=== PATIENT | female | born 1955 | race Two or more races ===

== ENCOUNTER 2018-04-05 13:54 | Emergency (ER) | payer OTHER ==
[~2018-04-05] VITALS: Ht 165.1 cm; Wt 108.9 kg
[2018-04-05 13:57] VITALS: BP 124/82
[2018-04-05] MEDS ORDERED: KETOROLAC TROMETH 60MG/2ML VIAL IM ONE (14:15)
[2018-04-05] MEDS ORDERED: PROMETHAZINE HCL 25 MG/ML 1ML IM ONE ×2 (15:30→15:45)
[2018-04-05] MEDS ORDERED: MEPERIDINE HCL (50 MG/ML) 1 ML VIAL IM ONE ×2 (15:30→15:45)
[2018-04-05] MEDS ORDERED: MEPERIDINE HCL (50 MG/ML) 1 ML VIAL ONE (15:44)
[2018-04-05] MEDS ORDERED: PROMETHAZINE HCL 25 MG/ML 1ML ONE (15:44)
== END 2018-04-05 16:19 | disposition home or self-care (01) ==
LOC: ER 13:54
DX: G89.29 Other chronic pain (principal); M54.5 Low back pain; M54.16 Radiculopathy, lumbar region; M51.36 Other intervertebral disc degeneration, lumbar region; J45.909 Unspecified asthma, uncomplicated
CPT/HCPCS: 72100; 96372; 99284; J1885; J2175; J2550

== ENCOUNTER 2018-06-08 17:57 | Emergency (ER) | payer MEDICAID ==
[~2018-06-08] VITALS: Ht 165.1 cm; Wt 108.9 kg
[2018-06-08 19:23] LABS: Basophils # (auto) 0.1 uL; Basophils % (auto) 0.8 % (0.0-2.0); Eosinophils # (auto) 0 uL; Eosinophils % (auto) 0.6 % (0.0-7.0); Hematocrit 39.6 % (36.0-46.0); Hemoglobin 13.1 g/dL (12.2-16.2); Lymphocytes # (auto) 2.4 uL; Lymphocytes % (auto) 33.9 % (10.0-50.0); Mean Corpuscular Hemoglobin 30.2 pg (28.0-32.0); Mean Corpuscular Hgb Conc. 33.2 g/dL (32.0-36.0); Monocytes # (auto) 0.5 uL; Monocytes % (auto) 7.7 % (0.0-12.0); Neutrophils # (auto) 4.1 uL; Nucleated Red Blood Cells % 0.2 %; Platelet Count (auto) 225 10^3/uL (140-450); Red Blood Cells 4.35 10^6/uL (4.0-5.20); Red Cell Distribution Width 15.2 % (11.8-14.3); White Blood Cell 7.1 10^3/uL (4.4-10.8)
[2018-06-08 19:40] LABS: Alanine Aminotransferase 29 U/L (13-56); Albumin 3.5 g/dL (3.4-5.0); Anion Gap 8 (5-15); Aspartate Aminotransferase 20 U/L (15-37); Blood Urea Nitrogen 14 mg/dL (7-18); Calcium 8.4 mg/dL (8.5-10.1); Carbon Dioxide 26 mmol/L (21-32); Chloride 109 mmol/L (98-107); GFR African American 128 mL/min; GFR Non-African American 106 mL/min; Glucose 87 mg/dL (74-106); Potassium 4.1 mmol/L (3.5-5.1); Sodium 143 mmol/L (136-145)
[2018-06-08 19:44] LABS: Alkaline Phosphatase 126 U/L (45-117); Bilirubin, Total 0.3 mg/dL (0.2-1.0)
[2018-06-08 20:02] LABS: Urine Bacteria FEW /hpf (None Seen); Urine Blood Negative /uL (Negative); Urine Specific Gravity 1.007 (1.001-1.035); Urine WBC <1 /hpf (0 - 5)
[2018-06-08 23:00] VITALS: BP 124/85
[2018-06-08] MEDS: HYDROcodone-ACET 10/325MG TAB PO ONE (23:10)
[2018-06-09] MEDS ORDERED: KETOROLAC TROMETH 30 MG/ML 1ML VIAL IV ONE (00:15)
== END 2018-06-09 03:19 | disposition left against medical advice (07) ==
LOC: ER 17:57
DX: M54.9 Dorsalgia, unspecified (principal); G89.29 Other chronic pain; R07.9 Chest pain, unspecified; Z53.21 Procedure and treatment not carried out due to patient leaving prior to being seen by health care provider
CPT/HCPCS: 36415; 72100; 72128; 72131; 80053; 81001; 83880; 84484; 85025; 93005; J1885

== ENCOUNTER 2022-10-26 14:52 | Inpatient (IN) | payer OTHER, MEDICAID ==
[~2022-10-26] VITALS: Ht 165.1 cm; Wt 119.2 kg
[2022-10-26] MEDS ORDERED: PANTOPRAZOLE 40 MG/10 ML VIAL INJ IV ONE ×2 (15:45→19:00)
[2022-10-26] MEDS ORDERED: MORPHINE SULFATE 4 MG/ML SYR/VIAL IV ONE (15:45)
[2022-10-26] MEDS ORDERED: ONDANSETRON HCL 4 MG/2 ML VIAL IV ONE (15:45)
[2022-10-26] MEDS ORDERED: SODIUM CHLORIDE 0.9% 500 ML IVB ONE (15:45)
[2022-10-26 16:37] LABS: Basophils # (auto) 0.2 10 ^3/uL (0-0.2); Basophils % (auto) 1.1 % (0.0-2.0); Eosinophils # (auto) 0 10 ^3/uL (0-0.8); Eosinophils % (auto) 0.1 % (0.0-7.0); Hematocrit 48.5 % (36.0-46.0); Hemoglobin 16.2 g/dL (12.2-16.2); Lymphocytes # (auto) 1.4 10 ^3/uL (0.4-5.4); Mean Corpuscular Hemoglobin 29.9 pg (28.0-32.0); Mean Corpuscular Hgb Conc. 33.4 g/dL (32.0-36.0); Mean Corpuscular Volume 89.6 fL (80.0-100.0); Monocytes # (auto) 0.6 10 ^3/uL (0-1.3); Monocytes % (auto) 4.1 % (0.0-12.0); Neutrophils # (auto) 12.2 10 ^3/uL (1.6-8.6); Neutrophils % (auto) 84.7 % (37.0-80.0); Nucleated Red Blood Cells % 0.1 %; Red Blood Cells 5.41 10^6/uL (4.0-5.20); Red Cell Distribution Width 14.1 % (11.8-14.3); White Blood Cell 14.4 10^3/uL (4.4-10.8)
[2022-10-26] MEDS ORDERED: PIPERACILLIN-TAZOB 3.375GM 100 ML IV ONE (17:45)
[2022-10-26 18:25] LABS: Potassium 3.8 mmol/L (3.5-5.1); Sodium 138 mmol/L (136-145)
[2022-10-26 18:26] LABS: Alanine Aminotransferase 28 U/L (13-56); Albumin 3.9 g/dL (3.4-5.0); Alkaline Phosphatase 129 U/L (45-117); Anion Gap 7 (5-15); Aspartate Aminotransferase 26 U/L (15-37); Bilirubin, Total 0.6 mg/dL (0.2-1.0); Blood Urea Nitrogen 13 mg/dL (7-18); Calcium 9.2 mg/dL (8.5-10.1); Carbon Dioxide 22 mmol/L (21-32); Chloride 109 mmol/L (98-107); GFR African American 117 mL/min; GFR Non-African American 97 mL/min; Glucose 144 mg/dL (74-106); Lipase 79 U/L (73-393); Total Protein 7.5 g/dL (6.4-8.2)
[2022-10-26 18:37] LABS: INR 0.97 (0.9-1.15); Partial Thromboplastin Time 24.7 sec (24.6-33.4)
[2022-10-26] MEDS: ONDANSETRON HCL 4 MG/2 ML VIAL IV PRN (19:32)
[2022-10-26 20:07] LABS: INR 0.97 (0.9-1.15)
[2022-10-26 20:10] LABS: Cholesterol 212 mg/dL (< 200); Triglycerides 102 mg/dL (< 150)
[2022-10-26 20:13] LABS: HDL Cholesterol 63 mg/dL (40-59); LDL Cholesterol 138 mg/dL (< 100)
[2022-10-26] MEDS: HYDROmorphone HCL 2 MG/ML VL/or syr IV PRN (21:00)
[2022-10-26] MEDS: metroNIDAZOLE 500MG/100ML 100 ML IV SCH (22:21)
[2022-10-26] MEDS: LACTATED RINGER'S 1,000 ML IV SCH (22:22)
[2022-10-26 22:29] LABS: Urine Amorphous Crystal FEW /hpf (None Seen); Urine Bacteria FEW /hpf (None Seen); Urine Blood Negative /uL (Negative); Urine Budding Yeast FEW /hpf (None Seen); Urine Specific Gravity 1.024 (1.001-1.035); Urine WBC <1 /hpf (0 - 5)
[2022-10-26 22:54] LABS: Alcohol, Urine < 3.0 mg/dL (0-10); Amphetamine Screen, Urine NEGATIVE (NEGATIVE); Barbiturate Scree,Urine NEGATIVE (NEGATIVE); Benzodiazephine Screen, Urine NEGATIVE (NEGATIVE); Cannabinoid Screen, Urine NEGATIVE (NEGATIVE); Cocaine Screen, Urine NEGATIVE (NEGATIVE); Opiate Scree,Urine POSITIVE (NEGATIVE); Phencyclidine Screen, Urine NEGATIVE (NEGATIVE)
[2022-10-27] MEDS: HYDROmorphone HCL 2 MG/ML VL/or syr IV PRN ×4 (01:43→23:16)
[2022-10-27] MEDS: metroNIDAZOLE 500MG/100ML 100 ML IV SCH ×3 (05:05→21:58)
[2022-10-27 05:25] LABS: Basophils # (auto) 0 10 ^3/uL (0-0.2); Basophils % (auto) 0.3 % (0.0-2.0); Eosinophils # (auto) 0 10 ^3/uL (0-0.8); Eosinophils % (auto) 0.3 % (0.0-7.0); Hematocrit 40.3 % (36.0-46.0); Hemoglobin 13.9 g/dL (12.2-16.2); Lymphocytes # (auto) 1.8 10 ^3/uL (0.4-5.4); Lymphocytes % (auto) 18.7 % (10.0-50.0); Mean Corpuscular Hgb Conc. 34.6 g/dL (32.0-36.0); Mean Corpuscular Volume 89.5 fL (80.0-100.0); Monocytes % (auto) 10.2 % (0.0-12.0); Neutrophils % (auto) 70.5 % (37.0-80.0); Nucleated Red Blood Cells % 0.1 %; Red Cell Distribution Width 14.1 % (11.8-14.3); White Blood Cell 9.9 10^3/uL (4.4-10.8)
[2022-10-27 05:41] LABS: Albumin 3.4 g/dL (3.4-5.0); Calcium 8.3 mg/dL (8.5-10.1); Potassium 3.8 mmol/L (3.5-5.1); Total Protein 6.5 g/dL (6.4-8.2)
[2022-10-27 05:43] LABS: Bilirubin, Total 0.6 mg/dL (0.2-1.0)
[2022-10-27] MEDS: ONDANSETRON HCL 4 MG/2 ML VIAL IV PRN ×2 (05:45→10:53)
[2022-10-27] MEDS ORDERED: PANTOPRAZOLE 40 MG/10 ML VIAL INJ IV SCH (10:00)
[2022-10-27] MEDS: cefTRIAXone 1GM/50ML D5W 50 ML IV SCH (10:53)
[2022-10-27] MEDS: LACTATED RINGER'S 1,000 ML IV SCH ×2 (10:54→15:00)
[2022-10-27 13:00] VITALS: BP 118/74
[2022-10-27] MEDS ORDERED: GASTROGRAFIN 120 ML SOL ONE (13:42)
[2022-10-27 17:00] VITALS: BP 114/83
[2022-10-27 22:00] VITALS: BP 127/75
[2022-10-28] MEDS: LACTATED RINGER'S 1,000 ML IV SCH ×2 (01:00→12:54)
[2022-10-28 05:00] VITALS: BP 104/59
[2022-10-28] MEDS: metroNIDAZOLE 500MG/100ML 100 ML IV SCH ×3 (05:35→23:15)
[2022-10-28] MEDS: HYDROmorphone HCL 2 MG/ML VL/or syr IV PRN ×3 (05:55→23:15)
[2022-10-28 06:24] LABS: Basophils # (auto) 0 10 ^3/uL (0-0.2); Basophils % (auto) 0.6 % (0.0-2.0); Eosinophils # (auto) 0.1 10 ^3/uL (0-0.8); Hematocrit 38.3 % (36.0-46.0); Hemoglobin 13.3 g/dL (12.2-16.2); Lymphocytes # (auto) 2.2 10 ^3/uL (0.4-5.4); Lymphocytes % (auto) 31.9 % (10.0-50.0); Mean Corpuscular Hemoglobin 30.8 pg (28.0-32.0); Mean Corpuscular Hgb Conc. 34.7 g/dL (32.0-36.0); Mean Corpuscular Volume 88.9 fL (80.0-100.0); Monocytes # (auto) 0.6 10 ^3/uL (0-1.3); Monocytes % (auto) 8.6 % (0.0-12.0); Neutrophils # (auto) 3.9 10 ^3/uL (1.6-8.6); Neutrophils % (auto) 56.9 % (37.0-80.0); Nucleated Red Blood Cells % 0.2 %; Red Blood Cells 4.31 10^6/uL (4.0-5.20); Red Cell Distribution Width 14.2 % (11.8-14.3); White Blood Cell 6.8 10^3/uL (4.4-10.8)
[2022-10-28 07:03] LABS: Calcium 8.2 mg/dL (8.5-10.1); Potassium 3.3 mmol/L (3.5-5.1)
[2022-10-28 07:07] LABS: BUN/Creatinine Ratio 36.1
[2022-10-28 08:30] VITALS: BP 118/75
[2022-10-28] MEDS: cefTRIAXone 1GM/50ML D5W 50 ML IV SCH (10:14)
[2022-10-28] MEDS: ONDANSETRON HCL 4 MG/2 ML VIAL IV PRN (10:14)
[2022-10-28] MEDS ORDERED: HYDR-4798 PO (10:44)
[2022-10-28] MEDS ORDERED: POTASSIUM CHL 20 Meq TABLET PO ONE (11:45)
[2022-10-28 13:00] VITALS: BP 125/73
[2022-10-28 16:40] VITALS: BP 126/71
[2022-10-28 22:00] VITALS: BP 112/67
[2022-10-29] MEDS: LACTATED RINGER'S 1,000 ML IV SCH (04:25)
[2022-10-29 05:00] VITALS: BP 117/76
[2022-10-29] MEDS: metroNIDAZOLE 500MG/100ML 100 ML IV SCH (05:54)
[2022-10-29] MEDS: HYDROmorphone HCL 2 MG/ML VL/or syr IV PRN (05:54)
[2022-10-29 06:05] LABS: Basophils # (auto) 0 10 ^3/uL (0-0.2); Basophils % (auto) 0.6 % (0.0-2.0); Eosinophils # (auto) 0.1 10 ^3/uL (0-0.8); Eosinophils % (auto) 1.8 % (0.0-7.0); Hematocrit 38.9 % (36.0-46.0); Hemoglobin 13.4 g/dL (12.2-16.2); Lymphocytes # (auto) 2.9 10 ^3/uL (0.4-5.4); Lymphocytes % (auto) 39.2 % (10.0-50.0); Mean Corpuscular Hemoglobin 30.8 pg (28.0-32.0); Mean Corpuscular Hgb Conc. 34.5 g/dL (32.0-36.0); Mean Corpuscular Volume 89.1 fL (80.0-100.0); Monocytes # (auto) 0.6 10 ^3/uL (0-1.3); Monocytes % (auto) 8.3 % (0.0-12.0); Neutrophils # (auto) 3.7 10 ^3/uL (1.6-8.6); Neutrophils % (auto) 50.1 % (37.0-80.0); Nucleated Red Blood Cells % 0.2 %; Red Blood Cells 4.36 10^6/uL (4.0-5.20); Red Cell Distribution Width 13.9 % (11.8-14.3); White Blood Cell 7.4 10^3/uL (4.4-10.8)
[2022-10-29 06:17] LABS: Potassium 3.3 mmol/L (3.5-5.1)
[2022-10-29 06:23] LABS: BUN/Creatinine Ratio 14.6; Calcium 8.5 mg/dL (8.5-10.1)
[2022-10-29 08:38] VITALS: BP 122/69
[2022-10-29] MEDS: cefTRIAXone 1GM/50ML D5W 50 ML IV SCH (09:00)
[2022-10-29] MEDS ORDERED: POTASSIUM CHL 20 Meq TABLET PO ONE (11:45)
[2022-10-29 13:00] VITALS: BP 113/62
== END 2022-10-29 14:00 | disposition home or self-care (01) | DRG 389 ==
LOC: ER 14:52 → EDBD 14:52 → EDUNIT# 14:52 → OVERFLOW 18:59 → WEST WING 10-27 08:55
PROVIDERS: ADMIT Registered Nurse; ATTEND Internal Medicine
PROC: 0D9670Z Drainage of Stomach with Drainage Device, Via Natural or Artificial Opening (ICD-10-PCS; principal; 2022-10-26)
DX: K56.609 Unspecified intestinal obstruction, unspecified as to partial versus complete obstruction (principal); Z68.41 Body mass index [BMI] 40.0-44.9, adult; E66.01 Morbid (severe) obesity due to excess calories; J45.909 Unspecified asthma, uncomplicated; Z20.822 Contact with and (suspected) exposure to COVID-19; E87.6 Hypokalemia; G89.29 Other chronic pain; Z82.49 Family history of ischemic heart disease and other diseases of the circulatory system; Z90.710 Acquired absence of both cervix and uterus; Z90.49 Acquired absence of other specified parts of digestive tract
CPT/HCPCS: 36415; 71045; 74176; 74250; 80048; 80053; 80061; 80307; 81001; 83036; 83690; 84443; 85025; 85610; 85730; 86850; 86900; 86901; 87040; 87426; 96365; 96375; C9113; G0378; J0696; J2405; J2543; J3490

== ENCOUNTER 2022-12-09 23:08 | Emergency (ER) | payer OTHER, MEDICAID ==
[~2022-12-09] VITALS: Ht 165.1 cm; Wt 120.0 kg
[~2022-12-09 23:08] MED LIST: HYDR-4798 PO
[2022-12-09 23:59] LABS: Basophils # (auto) 0.1 10 ^3/uL (0-0.2); Basophils % (auto) 1.1 % (0.0-2.0); Eosinophils # (auto) 0.1 10 ^3/uL (0-0.8); Eosinophils % (auto) 1.1 % (0.0-7.0); Hematocrit 40.5 % (36.0-46.0); Hemoglobin 13.9 g/dL (12.2-16.2); Lymphocytes # (auto) 2.8 10 ^3/uL (0.4-5.4); Lymphocytes % (auto) 34.2 % (10.0-50.0); Mean Corpuscular Hemoglobin 30.4 pg (28.0-32.0); Mean Corpuscular Hgb Conc. 34.4 g/dL (32.0-36.0); Mean Corpuscular Volume 88.4 fL (80.0-100.0); Monocytes # (auto) 0.6 10 ^3/uL (0-1.3); Monocytes % (auto) 7.6 % (0.0-12.0); Neutrophils # (auto) 4.6 10 ^3/uL (1.6-8.6); Nucleated Red Blood Cells % 0.1 %; Red Blood Cells 4.58 10^6/uL (4.0-5.20); Red Cell Distribution Width 13.7 % (11.8-14.3); White Blood Cell 8.3 10^3/uL (4.4-10.8)
[2022-12-10 00:13] LABS: Albumin 3.5 g/dL (3.4-5.0); Calcium 8.6 mg/dL (8.5-10.1); Potassium 3.1 mmol/L (3.5-5.1)
[2022-12-10 00:14] LABS: Bilirubin, Total 0.3 mg/dL (0.2-1.0); Total Protein 7.2 g/dL (6.4-8.2)
[2022-12-10 01:35] VITALS: BP 155/88
[2022-12-10] MEDS ORDERED: HYDROcodone-ACET 10/325MG TAB PO ONE (02:15)
[2022-12-10] MEDS ORDERED: POTASSIUM EFFERVESENT TAB 25 MEQ PO ONE (02:30)
== END 2022-12-10 02:24 | disposition home or self-care (01) ==
LOC: ER 23:08 → EDBD 23:08 → ER 12-10 02:24
DX: S16.1XXA Strain of muscle, fascia and tendon at neck level, initial encounter (principal); S93.402A Sprain of unspecified ligament of left ankle, initial encounter; R07.89 Other chest pain; V43.62XA Car passenger injured in collision with other type car in traffic accident, initial encounter; Y93.89 Activity, other specified; Y92.488 Other paved roadways as the place of occurrence of the external cause; Y99.8 Other external cause status
CPT/HCPCS: 36415; 71250; 74176; 80053; 84484; 85025; 93005

== ENCOUNTER 2023-05-09 11:09 | Emergency (ER) | payer MEDICARE, OTHER ==
[~2023-05-09] VITALS: Ht 165.1 cm; Wt 116.4 kg
[2023-05-09 11:22] VITALS: BP 146/85; PULSE 82; RESP 16; TEMP 98.6; O2SAT 96
[2023-05-09] MEDS ORDERED: HYDR-4798 PO (14:55)
== END 2023-05-09 15:20 | disposition home or self-care (01) ==
LOC: ER 11:09
DX: M48.061 Spinal stenosis, lumbar region without neurogenic claudication (principal); G89.29 Other chronic pain; M54.50 Low back pain, unspecified; J45.909 Unspecified asthma, uncomplicated; Z90.49 Acquired absence of other specified parts of digestive tract

== ENCOUNTER 2023-08-23 08:00 | Inpatient (IN) | payer MEDICARE, MEDICAID ==
[2023-08-22 10:51] LABS: Basophils # (auto) 0 10 ^3/uL (0-0.2); Basophils % (auto) 0.5 % (0.0-2.0); Eosinophils # (auto) 0 10 ^3/uL (0-0.8); Eosinophils % (auto) 0.6 % (0.0-7.0); Hematocrit 42.9 % (36.0-46.0); Hemoglobin 14.2 g/dL (12.2-16.2); Lymphocytes % (auto) 29.5 % (10.0-50.0); Mean Corpuscular Hemoglobin 30.3 pg (28.0-32.0); Mean Corpuscular Hgb Conc. 33.1 g/dL (32.0-36.0); Mean Corpuscular Volume 91.5 fL (80.0-100.0); Monocytes # (auto) 0.5 10 ^3/uL (0-1.3); Monocytes % (auto) 7.6 % (0.0-12.0); Neutrophils # (auto) 4.2 10 ^3/uL (1.6-8.6); Neutrophils % (auto) 61.8 % (37.0-80.0); Nucleated Red Blood Cells % 0.1 %; Red Blood Cells 4.69 10^6/uL (4.0-5.20); Red Cell Distribution Width 13.5 % (11.8-14.3); White Blood Cell 6.8 10^3/uL (4.4-10.8)
[2023-08-22 11:04] LABS: INR 0.97 (0.9-1.15); Partial Thromboplastin Time 26.3 SEC (24.5-34.5); Prothrombin Time 10.2 sec (9.3-11.8)
[2023-08-22 11:13] LABS: Urine Bacteria FEW /hpf (None Seen); Urine Blood TRACE /uL (Negative); Urine Clarity Clear (Clear); Urine Protein, UAD Negative (Negative); Urine Specific Gravity 1.009 (1.001-1.035); Urine Urobilinogen Normal (Negative); Urine WBC 3 /hpf (0 - 5)
[2023-08-22 11:14] LABS: Urine Color Straw (Yellow)
[2023-08-22 11:41] LABS: Alanine Aminotransferase 10 U/L (7-40); Alkaline Phosphatase 108 U/L (46-116); Anion Gap 5 (5-15); Aspartate Aminotransferase 17 U/L (13-40); BUN/Creatinine Ratio 12.9 (10.0-20.0); Blood Urea Nitrogen 8 mg/dL (9-23); Calcium 9.2 mg/dL (8.5-10.1); Carbon Dioxide 28 mmol/L (20-30); Chloride 109 mmol/L (98-107); Glucose 98 mg/dL (74-106); Potassium 4.4 mmol/L (3.5-5.1); Sodium 142 mmol/L (136-145)
[2023-08-22 11:42] LABS: Bilirubin, Total 0.6 mg/dL (0.2-1.0); Total Protein 6.5 g/dL (5.7-8.2)
[~2023-08-23] VITALS: Ht 165.1 cm; Wt 129.8 kg
[~2023-08-23 08:00] MED LIST changes: +FLUT1AER3 IN; -HYDR-4798 PO; +MELO-335 PO
[2023-08-23] MEDS ORDERED: ceFAZolin 2 GM/D5W100ml 100 ML IV ONE (08:09)
[2023-08-23] MEDS ORDERED: TRANEXAMIC ACID 20 ML ONE (08:18)
[2023-08-23] MEDS ORDERED: LIDOCAINE W/ EPINEPHRINE 2% INJ 20ML VIAL ONE (08:19)
[2023-08-23] MEDS ORDERED: VANCOMYCIN HCL 1000 MG VL ONE (08:20)
[2023-08-23] MEDS ORDERED: fentaNYL CITRATE 100 MCG/2 ML VL ONE ×2 (08:45→09:47)
[2023-08-23] MEDS ORDERED: ROPIVACAINE 0.5% (5MG/ML) 20ML AMPULE IJ ONE (08:53)
[2023-08-23] MEDS ORDERED: KETOROLAC TROMETH 30 MG/ML 1ML VIAL ONE (09:02)
[2023-08-23] MEDS ORDERED: BUPIVACAINE HCL 50 ML ONE (09:03)
[2023-08-23] MEDS ORDERED: MORPHINE SULF PF 5 MG/10 ML VIAL ONE (09:04)
[2023-08-23] MEDS ORDERED: ONDANSETRON HCL 4 MG/2 ML VIAL ONE (09:15)
[2023-08-23] MEDS ORDERED: PROPOFOL 10 MG/ML 20 ML IV ONE (09:15)
[2023-08-23] MEDS ORDERED: DexAMETHasone SOD PHOS 10MG/1ML VIAL INJ ONE (09:15)
[2023-08-23] MEDS ORDERED: MEPERIDINE HCL (25 MG/ML) 1ML VIAL ONE ×2 (09:17→11:20)
[2023-08-23] MEDS ORDERED: ePHEDrine SULFATE 50 MG/ML AMP ONE (11:03)
[2023-08-23 11:25] VITALS: O2SAT 94
[2023-08-23] MEDS ORDERED: ONDANSETRON HCL 4 MG/2 ML VIAL IV PRN ×2 (11:45)
[2023-08-23] MEDS ORDERED: ceFAZolin 1GM/50ML 50 ML IV SCH (11:45)
[2023-08-23] MEDS ORDERED: MORPHINE SULFATE INJ 2 MG/ml SYRG IV PRN (11:45)
[2023-08-23] MEDS ORDERED: ACETAMINOPHEN 325 MG TAB PO PRN (11:45)
[2023-08-23] MEDS ORDERED: MEPERIDINE HCL (25 MG/ML) 1ML VIAL IV PRN (11:45)
[2023-08-23] MEDS ORDERED: BISACODYL 5 MG EC TAB PO PRN (11:45)
[2023-08-23] MEDS ORDERED: NITROGLYCERIN 0.4 MG SL TAB SL PRN (11:45)
[2023-08-23] MEDS: HYDROmorphone HCL 2 MG/ML VL/or syr IV PRN ×6 (11:47→21:16)
[2023-08-23] MEDS: LACTATED RINGER'S 1,000 ML IV SCH ×2 (12:00→21:45)
[2023-08-23] MEDS ORDERED: ALBUTEROL SULF 2.5 MG/0.5ML(0.5%) NEB SOLN NEB PRN (13:45)
[2023-08-23] MEDS: HYDROcodone-ACET 5/325MG TAB PO PRN (14:18)
[2023-08-23] MEDS: ceFAZolin 1GM/50ML 50 ML IV SCH ×2 (14:51→21:28)
[2023-08-23 16:21] VITALS: PULSE 72; RESP 18; O2SAT 95
[2023-08-23 17:00] VITALS: BP 110/61; PULSE 72; RESP 18; TEMP 98.2; O2SAT 95
[2023-08-23] MEDS: ACCU-CHEK COMFORT CURVE STRIP VI SCH ×2 (17:00→21:28)
[2023-08-23 20:00] VITALS: BP 136/67; PULSE 66; PULSE 72; RESP 18; TEMP 97.4; O2SAT 95
[2023-08-23] MEDS: DOCUSATE SOD 100 MG CAP PO SCH (21:15)
[2023-08-23] MEDS: ENOXAPARIN SOD 30 MG/0.3 ML SYRINGE SC SCH (21:16)
[2023-08-23 22:00] VITALS: BP 136/67; PULSE 72; RESP 18; TEMP 97.4; O2SAT 95
[2023-08-24] VITALS (10 sets, daily range): BP systolic 105–130; BP diastolic 51–88; PULSE 70–84; RESP 16–20; TEMP 97.8–98.6; O2SAT 94–97
[2023-08-24] MEDS: ceFAZolin 1GM/50ML 50 ML IV SCH (04:01)
[2023-08-24] MEDS: HYDROmorphone HCL 2 MG/ML VL/or syr IV PRN ×3 (04:14→22:18)
[2023-08-24] MEDS: ACCU-CHEK COMFORT CURVE STRIP VI SCH ×4 (06:31→22:23)
[2023-08-24 06:42] LABS: Basophils # (auto) 0 10 ^3/uL (0-0.2); Basophils % (auto) 0.1 % (0.0-2.0); Eosinophils # (auto) 0 10 ^3/uL (0-0.8); Hemoglobin 11.4 g/dL (12.2-16.2); Lymphocytes # (auto) 1.6 10 ^3/uL (0.4-5.4); Lymphocytes % (auto) 13.7 % (10.0-50.0); Mean Corpuscular Hemoglobin 30.6 pg (28.0-32.0); Mean Corpuscular Hgb Conc. 33.6 g/dL (32.0-36.0); Mean Corpuscular Volume 90.8 fL (80.0-100.0); Monocytes % (auto) 9.1 % (0.0-12.0); Neutrophils # (auto) 8.8 10 ^3/uL (1.6-8.6); Neutrophils % (auto) 77.1 % (37.0-80.0); Red Blood Cells 3.74 10^6/uL (4.0-5.20); Red Cell Distribution Width 13.6 % (11.8-14.3); White Blood Cell 11.4 10^3/uL (4.4-10.8)
[2023-08-24 07:02] LABS: Alanine Aminotransferase 14 U/L (7-40); Alkaline Phosphatase 81 U/L (46-116); Anion Gap 9 (5-15); BUN/Creatinine Ratio 13.6 (10.0-20.0); Blood Urea Nitrogen 8 mg/dL (9-23); Calcium 8.8 mg/dL (8.5-10.1); Carbon Dioxide 23 mmol/L (20-30); Chloride 105 mmol/L (98-107); Glucose 109 mg/dL (74-106); Potassium 4.2 mmol/L (3.5-5.1); Sodium 137 mmol/L (136-145)
[2023-08-24 07:03] LABS: Albumin 3.6 g/dL (3.2-4.8); Aspartate Aminotransferase 15 U/L (13-40); Bilirubin, Total 0.6 mg/dL (0.2-1.0); Total Protein 5.6 g/dL (5.7-8.2)
[2023-08-24] MEDS: LACTATED RINGER'S 1,000 ML IV SCH ×2 (07:45→11:15)
[2023-08-24] MEDS: ENOXAPARIN SOD 30 MG/0.3 ML SYRINGE SC SCH ×2 (09:08→22:14)
[2023-08-24] MEDS: DOCUSATE SOD 100 MG CAP PO SCH ×2 (10:00→22:13)
[2023-08-25] VITALS (8 sets, daily range): BP systolic 108–131; BP diastolic 52–72; PULSE 68–91; RESP 17–19; TEMP 97.9–99; O2SAT 90–97
[2023-08-25] MEDS: HYDROmorphone HCL 2 MG/ML VL/or syr IV PRN ×5 (02:46→21:38)
[2023-08-25] MEDS: LACTATED RINGER'S 1,000 ML IV SCH (03:55)
[2023-08-25 06:40] LABS: Basophils # (auto) 0 10 ^3/uL (0-0.2); Basophils % (auto) 0.3 % (0.0-2.0); Eosinophils # (auto) 0.1 10 ^3/uL (0-0.8); Eosinophils % (auto) 0.8 % (0.0-7.0); Hematocrit 29.3 % (36.0-46.0); Lymphocytes # (auto) 2.8 10 ^3/uL (0.4-5.4); Lymphocytes % (auto) 33.6 % (10.0-50.0); Mean Corpuscular Hemoglobin 31.3 pg (28.0-32.0); Mean Corpuscular Hgb Conc. 34.1 g/dL (32.0-36.0); Mean Corpuscular Volume 91.8 fL (80.0-100.0); Monocytes % (auto) 11.9 % (0.0-12.0); Neutrophils # (auto) 4.5 10 ^3/uL (1.6-8.6); Neutrophils % (auto) 53.4 % (37.0-80.0); Red Blood Cells 3.19 10^6/uL (4.0-5.20); Red Cell Distribution Width 13.7 % (11.8-14.3); White Blood Cell 8.3 10^3/uL (4.4-10.8)
[2023-08-25] MEDS: ACCU-CHEK COMFORT CURVE STRIP VI SCH ×4 (07:00→21:44)
[2023-08-25] MEDS: DOCUSATE SOD 100 MG CAP PO SCH ×2 (09:10→21:36)
[2023-08-25] MEDS: ENOXAPARIN SOD 30 MG/0.3 ML SYRINGE SC SCH ×2 (09:10→21:37)
[2023-08-26] VITALS (8 sets, daily range): BP systolic 91–108; BP diastolic 60–69; PULSE 68–93; RESP 17–18; TEMP 98.3–98.4; O2SAT 86–100
[2023-08-26] MEDS: HYDROmorphone HCL 2 MG/ML VL/or syr IV PRN ×2 (02:08→06:29)
[2023-08-26] MEDS: ACCU-CHEK COMFORT CURVE STRIP VI SCH ×2 (07:05→11:30)
[2023-08-26] MEDS: DOCUSATE SOD 100 MG CAP PO SCH (10:25)
[2023-08-26] MEDS: HYDROcodone-ACET 5/325MG TAB PO PRN (10:25)
[2023-08-26] MEDS: ENOXAPARIN SOD 30 MG/0.3 ML SYRINGE SC SCH (10:25)
[2023-08-27] MEDS ORDERED: HYDR-4902 PO (18:33)
== END 2023-08-26 16:30 | DRG 470 ==
LOC: SUR 08:00 → OVERFLOW 11:53 → WEST WING 15:21 → TELE-WESTW 16:11 → WEST WING 08-24 12:07
PROVIDERS: ADMIT Orthopaedic Surgery; ATTEND Internal Medicine
PROC: 0SRC069 Replacement of Right Knee Joint with Oxidized Zirconium on Polyethylene Synthetic Substitute, Cemented, Open Approach (ICD-10-PCS; principal; 2023-08-23 09:07)
DX: M17.11 Unilateral primary osteoarthritis, right knee (principal); J45.909 Unspecified asthma, uncomplicated; E66.01 Morbid (severe) obesity due to excess calories; G89.29 Other chronic pain; Z68.34 Body mass index [BMI] 34.0-34.9, adult; Z82.49 Family history of ischemic heart disease and other diseases of the circulatory system
CPT/HCPCS: 36415; 71045; 73562; 80053; 81001; 82962; 85025; 85610; 85730; 86850; 86900; 86901; 97110; 97116; 97163; 97530; G0378; J1100; J1885; J2405; J2704; J3490

== ENCOUNTER 2023-08-27 08:52 | Inpatient (IN) | payer MEDICARE, MEDICAID ==
[2023-08-27] VITALS (9 sets, daily range): BP systolic 124; BP diastolic 77–81; PULSE 18–87; RESP 18–20; TEMP 86–98.8; O2SAT 95–98
[~2023-08-27] VITALS: Ht 165.1 cm; Wt 126.3 kg
[2023-08-27] MEDS ORDERED: HYDROcodone-ACET 10/325MG TAB PO ONE (09:30)
[2023-08-27] MEDS ORDERED: DOCUSATE SOD 100 MG CAP PO PRN (11:45)
[2023-08-27] MEDS ORDERED: MORPHINE SULFATE INJ 2 MG/ml SYRG IV PRN (11:45)
[2023-08-27] MEDS ORDERED: ONDANSETRON HCL 4 MG/2 ML VIAL IV PRN (11:45)
[2023-08-27 12:01] LABS: Urine Bacteria FEW /hpf (None Seen); Urine Blood Negative /uL (Negative); Urine Clarity HAZY (Clear); Urine Protein, UAD Negative (Negative); Urine Specific Gravity 1.005 (1.001-1.035); Urine Urobilinogen Normal (Negative); Urine WBC 3 /hpf (0 - 5)
[2023-08-27 12:02] LABS: Urine Color Yellow (Yellow)
[2023-08-27] MEDS ORDERED: MELOXICAM 15 MG PO PRN (13:15)
[2023-08-27] MEDS ORDERED: ALBUTEROL SULF 2.5 MG/0.5ML(0.5%) NEB SOLN NEB PRN (13:15)
[2023-08-27] MEDS ORDERED: IPRATROPIUM BROM 0.5 MG/2.5ML INH SOL NEB PRN (13:15)
[2023-08-27] MEDS ORDERED: ENOXAPARIN SOD 40 MG/0.4 ML SYRINGE SC ONE (13:45)
[2023-08-27] MEDS: cefTRIAXone 1GM/50ML D5W 50 ML IV SCH (14:13)
[2023-08-27] MEDS: HYDROcodone-ACET 5/325MG TAB PO PRN (17:00)
[2023-08-27 17:31] LABS: Basophils # (auto) 0 10 ^3/uL (0-0.2); Basophils % (auto) 0.5 % (0.0-2.0); Eosinophils # (auto) 0.1 10 ^3/uL (0-0.8); Eosinophils % (auto) 0.9 % (0.0-7.0); Hematocrit 29.8 % (36.0-46.0); Hemoglobin 9.8 g/dL (12.2-16.2); Lymphocytes # (auto) 2.6 10 ^3/uL (0.4-5.4); Lymphocytes % (auto) 33.1 % (10.0-50.0); Mean Corpuscular Hemoglobin 30.1 pg (28.0-32.0); Mean Corpuscular Hgb Conc. 32.9 g/dL (32.0-36.0); Mean Corpuscular Volume 91.5 fL (80.0-100.0); Monocytes # (auto) 0.8 10 ^3/uL (0-1.3); Monocytes % (auto) 10.5 % (0.0-12.0); Neutrophils # (auto) 4.3 10 ^3/uL (1.6-8.6); Nucleated Red Blood Cells % 0.1 %; Red Blood Cells 3.26 10^6/uL (4.0-5.20); Red Cell Distribution Width 13.9 % (11.8-14.3); White Blood Cell 7.8 10^3/uL (4.4-10.8)
[2023-08-27 17:46] LABS: Alanine Aminotransferase 28 U/L (7-40); Alkaline Phosphatase 94 U/L (46-116); Anion Gap 7 (5-15); Aspartate Aminotransferase 37 U/L (13-40); BUN/Creatinine Ratio 15.5 (10.0-20.0); Blood Urea Nitrogen 9 mg/dL (9-23); Calcium 8.3 mg/dL (8.7-10.4); Carbon Dioxide 26 mmol/L (20-30); Chloride 107 mmol/L (98-107); Glucose 107 mg/dL (74-106); Potassium 3.7 mmol/L (3.5-5.1); Sodium 140 mmol/L (136-145)
[2023-08-27 17:47] LABS: Albumin 3.6 g/dL (3.2-4.8); Total Protein 5.4 g/dL (5.7-8.2)
[2023-08-27] MEDS ORDERED: HYDR-4902 PO (18:33)
[2023-08-27] MEDS: ACETAMINOPHEN 325 MG TAB PO PRN (22:00)
[2023-08-27] MEDS ORDERED: KETOROLAC TROMETH 30 MG/ML 1ML VIAL IV ONE (23:15)
[2023-08-28] VITALS (10 sets, daily range): BP systolic 115–138; BP diastolic 57–80; PULSE 69–84; RESP 17–20; TEMP 97.8–98.5; O2SAT 93–98
[2023-08-28 06:46] LABS: Basophils # (auto) 0 10 ^3/uL (0-0.2); Basophils % (auto) 0.7 % (0.0-2.0); Eosinophils # (auto) 0.1 10 ^3/uL (0-0.8); Eosinophils % (auto) 2.2 % (0.0-7.0); Hematocrit 28.7 % (36.0-46.0); Hemoglobin 9.7 g/dL (12.2-16.2); Lymphocytes % (auto) 30.1 % (10.0-50.0); Mean Corpuscular Hemoglobin 31.2 pg (28.0-32.0); Mean Corpuscular Hgb Conc. 33.7 g/dL (32.0-36.0); Mean Corpuscular Volume 92.6 fL (80.0-100.0); Monocytes # (auto) 0.8 10 ^3/uL (0-1.3); Monocytes % (auto) 11.3 % (0.0-12.0); Neutrophils # (auto) 3.8 10 ^3/uL (1.6-8.6); Neutrophils % (auto) 55.7 % (37.0-80.0); Nucleated Red Blood Cells % 0.1 %; Red Cell Distribution Width 13.7 % (11.8-14.3); White Blood Cell 6.8 10^3/uL (4.4-10.8)
[2023-08-28] MEDS: ACETAMINOPHEN 325 MG TAB PO PRN ×2 (06:54→21:06)
[2023-08-28 07:03] LABS: Alanine Aminotransferase 24 U/L (7-40); Albumin 3.6 g/dL (3.2-4.8); Alkaline Phosphatase 89 U/L (46-116); Anion Gap 8 (5-15); Aspartate Aminotransferase 30 U/L (13-40); BUN/Creatinine Ratio 19.2 (10.0-20.0); Bilirubin, Total 1.3 mg/dL (0.2-1.0); Blood Urea Nitrogen 10 mg/dL (9-23); Calcium 8.4 mg/dL (8.7-10.4); Carbon Dioxide 24 mmol/L (20-30); Chloride 108 mmol/L (98-107); Glucose 95 mg/dL (74-106); Potassium 3.7 mmol/L (3.5-5.1); Sodium 140 mmol/L (136-145); Total Protein 5.8 g/dL (5.7-8.2)
[2023-08-28] MEDS ORDERED: ENOXAPARIN SOD 40 MG/0.4 ML SYRINGE SC SCH (10:00)
[2023-08-28] MEDS: cefTRIAXone 1GM/50ML D5W 50 ML IV SCH (10:16)
[2023-08-28] MEDS: ENOXAPARIN SOD 40 MG/0.4 ML SYRINGE SC SCH (10:16)
[2023-08-28] MEDS: HYDROcodone-ACET 5/325MG TAB PO PRN (22:23)
[2023-08-29] VITALS (7 sets, daily range): BP systolic 61–117; BP diastolic 61–80; PULSE 63–81; RESP 18–20; TEMP 36.7; O2SAT 95–97
[2023-08-29] MEDS: HYDROcodone-ACET 5/325MG TAB PO PRN ×2 (02:19→06:23)
[2023-08-29] MEDS: ACETAMINOPHEN 325 MG TAB PO PRN (05:05)
[2023-08-29] MEDS ORDERED: HYDR-4798 PO ×2 (09:13)
[2023-08-29] MEDS ORDERED: RIVA10TA PO ×3 (09:13→11:09)
[2023-08-29] MEDS ORDERED: CIPR-173 PO ×3 (09:13→11:09)
[2023-08-29] MEDS: ENOXAPARIN SOD 40 MG/0.4 ML SYRINGE SC SCH (09:57)
[2023-08-29] MEDS: cefTRIAXone 1GM/50ML D5W 50 ML IV SCH (09:57)
[2023-08-29] MEDS ORDERED: HYDR-4902 PO (11:09)
== END 2023-08-29 18:44 | disposition home health service (06) | DRG 948 ==
LOC: ER 08:52 → EDBD 08:52 → OVERFLOW 11:41 → EAST 16:25 → CENTRAL 08-28 09:32
PROVIDERS: ADMIT Family Medicine; ATTEND Family Medicine
DX: G89.18 Other acute postprocedural pain (principal); N30.00 Acute cystitis without hematuria; M25.561 Pain in right knee; M17.11 Unilateral primary osteoarthritis, right knee; Z90.49 Acquired absence of other specified parts of digestive tract; Z96.651 Presence of right artificial knee joint; J45.909 Unspecified asthma, uncomplicated
CPT/HCPCS: 36415; 80053; 81001; 85025; 87081; 97110; 97116; 97530; G0378; J1885